=== PATIENT | male | born 1950 | race Caucasian/White ===

== ENCOUNTER 2018-09-26 12:15 | Emergency (ER) | payer OTHER ==
--- NOTE | 2018-09-26 13:46 | ED ---
Skin Complaint - HPI Summary HPI Summary: Pt is a 67 y/o male who presents to the ED c/o ear bleeding. He states 10 days ago he had a lesion on his left ear removed for testing at the [place]. This morning in the shower the scab on his ear fell off and started spurting blood. He tried to stop the bleeding with pressure and an ice cube, but neither helped the bleeding stop. Pt is not on any blood thinners. PMHx HTN. - History of Current Complaint Chief Complaint: EDEarPain Time Seen by Provider: 09/26/18 13:35 Stated Complaint: LT EAR LAC Hx Obtained From: Patient Onset/Duration: Started Hours Ago - This morning, Resolved Timing: Constant Current Severity: None Pain Intensity: 0 Pain Scale Used: 0-10 Numeric Skin Location: Ear - Left Aggravating Symptom(s): Other: - Scab falling off Related History: Other: - Lesion removed for testing PMH/Surg Hx/FS Hx/Imm Hx Endocrine/Hematology History: Denies: Hx Diabetes Cardiovascular History: Reports: Hx Hypertension Infectious Disease History: No Infectious Disease History: Denies: Traveled Outside the [place] in Last 30 Days - Family History Known Family History: Negative: Blood Disorder - Social History Alcohol Use: Occasionally Hx Substance Use: No Substance Use Type: Reports: None Hx Tobacco Use: Yes Smoking Status (MU): Light Every Day Tobacco Smoker Review of Systems Negative: Fever Positive: Other - Bleeding lesion left ear All Other Systems Reviewed And Are Negative: Yes Physical Exam - Summary Physical Exam Summary: Appearance: Well appearing, no pain distress Skin: warm, dry, reflects adequate perfusion Head/face: normal Eyes: EOMI, VIET ENT: mucous membranes moist, 1.5 cm diameter circular shallow surgical wound into dermal layer on helix of left ear, no active bleeding Neck: supple, non-tender Respiratory: CTA, breath sounds present Cardiovascular: RRR, pulses symmetrical Abdomen: non-tender, soft Bowel Sounds: present Musculoskeletal: normal, strength/ROM intact Neuro: normal, sensory motor intact, A&Ox3 Triage Information Reviewed: Yes Vital Signs On Initial Exam: Initial Vitals Temp Pulse Resp BP Pulse Ox 98.3 F 65 16 133/54 98 09/26/18 12:17 09/26/18 12:17 09/26/18 12:17 09/26/18 12:17 09/26/18 12:17 Vital Signs Reviewed: Yes Procedures - Procedure Summary Procedure Summary: Left ear: Bacitracin ointment, pressure dressing Diagnostics - Vital Signs Vital Signs Temp Pulse Resp BP Pulse Ox 09/26/18 12:17 98.3 F 65 16 133/54 98 - Laboratory Lab Statement: Any lab studies that have been ordered have been reviewed, and results considered in the medical decision making process. Course/Dx - Course Course Of Treatment: Patient with bleeding dermatologic surgery wound on his pinna that had stopped by the time I saw him. It was dressed with bacitracin ointment and a pressure dressing was applied. He had no further bleeding throughout a period of observation. - Diagnoses Provider Diagnoses: Post-operative hemorrhage Discharge - Sign-Out/Discharge Documenting (check all that apply): Patient Departure - Discharge - Discharge Plan Condition: Improved Disposition: HOME Patient Education Materials: Postoperative Bleeding (ED) Referrals: Dinorah Peng [Primary Care Provider] - Additional Instructions: Dress with bacitracin ointment 2-[address] pressure on the area if it rebleeds. Return if worse, uncontrolled bleeding, or other concerns. - Billing Disposition and Condition Condition: IMPROVED Disposition: Home - Attestation Statements Document Initiated by Scribe: Yes Documenting Scribe: Elinor Portillo Provider For Whom Scribe is Documenting (Include Credential): Bart Keating MD Scribe Attestation: Elinor Gutierrez scribed for Bart Keating MD on 09/26/18 at 1905. Scribe Documentation Reviewed: Yes Provider Attestation: The documentation as recorded by the Elinor yao accurately reflects the service I personally performed and the decisions made by , Bart Keating MD
[2018-09-26 13:53] VITALS: BP 170/99
== END 2018-09-26 13:52 | disposition home or self-care (01) ==
LOC: ED 12:15
DX: L76.21 Postprocedural hemorrhage of skin and subcutaneous tissue following a dermatologic procedure (principal); F17.200 Nicotine dependence, unspecified, uncomplicated
CPT/HCPCS: 99281

== ENCOUNTER 2018-09-27 07:19 | Emergency (ER) | payer OTHER ==
[2018-09-27] MEDS ORDERED: Tranexamic Acid 1,000 MG/10 ML SDV IV ONE (07:37)
[2018-09-27] MEDS ORDERED: LIDOCAINE 0.5% ONE (07:39)
[2018-09-27] MEDS ORDERED: EPI ONE (07:39)
[2018-09-27] MEDS ORDERED: Lidocaine 2% EPI 1:200000 MPF*10-20 ML VIAL ONE (07:53)
[2018-09-27 09:41] VITALS: BP 163/108
--- NOTE | 2018-09-27 10:44 | ED ---
Skin Complaint - HPI Summary HPI Summary: Patient is a 67-year-old male presenting to the ED for the second time in 2 days with left ear bleeding. He states approximately 12 days ago he had a lesion on the left ear removed at the [place]. Yesterday he was seen in the ED, however the bleeding had ceased upon arrival and medications or treatment was not necessary. Patient denies any blood thinners, however has a history of hypertension. Not on medications currently. He states this morning he coughed and the area opened up again and started "spurting blood." He was unable to control this at home with ice and direct pressure. - History of Current Complaint Chief Complaint: EDEarPain Time Seen by Provider: 09/27/18 07:34 Stated Complaint: RT INNER EAR BLEED Hx Obtained From: Patient Onset/Duration: Started Hours Ago Skin Exposure Onset/Duration: Hours Ago Timing: Constant Onset Severity: Severe Current Severity: Severe Pain Intensity: 0 Pain Scale Used: 0-10 Numeric Skin Location: Ear Aggravating Symptom(s): Nothing Alleviating Symptom(s): Nothing Associated Signs & Symptoms: Negative Related History: Trauma - Allergy/Home Medications Allergies/Adverse Reactions: Allergies Allergy/AdvReac Type Severity Reaction Status Date / Time Sulfa (Sulfonamide Allergy Hives Verified 09/27/18 07:27 Antibiotics) PMH/Surg Hx/FS Hx/Imm Hx Previously Healthy: Yes Endocrine/Hematology History: Denies: Hx Diabetes Cardiovascular History: Reports: Hx Hypertension - Immunization History Hx Pertussis Vaccination: No Immunizations Up to Date: Yes Infectious Disease History: No Infectious Disease History: Denies: Traveled Outside the [place] in Last 30 Days - Family History Known Family History: Negative: Blood Disorder - Social History Occupation: Employed Full-time Lives: With Family Alcohol Use: Occasionally Hx Substance Use: No Substance Use Type: Reports: None Hx Tobacco Use: Yes Smoking Status (MU): Light Every Day Tobacco Smoker Review of Systems Constitutional: Negative Negative: Fever, Chills, Fatigue, Skin Diaphoresis Negative: Palpitations, Chest Pain Negative: Shortness Of Breath, Cough Negative: Abdominal Pain, Vomiting Negative: Arthralgia, Myalgia Positive: Other - small arterial bleed to the crura of the antihelix Neurological: Negative All Other Systems Reviewed And Are Negative: Yes Physical Exam Triage Information Reviewed: Yes Vital Signs On Initial Exam: Initial Vitals Temp Pulse Resp BP Pulse Ox 98.9 F 74 16 177/96 95 09/27/18 07:24 09/27/18 07:24 09/27/18 07:24 09/27/18 07:24 09/27/18 07:24 Vital Signs Reviewed: Yes Appearance: Positive: Well-Appearing, Well-Nourished Skin: Positive: Warm, Skin Color Reflects Adequate Perfusion, Other - small arterial bleed to the crura of the antihelix Head/Face: Positive: Normal Head/Face Inspection Eyes: Positive: EOMI, VIET, Conjunctiva Clear Neck: Positive: No Lymphadenopathy Respiratory/Lung Sounds: Positive: Clear to Auscultation, Breath Sounds Present Cardiovascular: Positive: Pulses are Symmetrical in both Upper and Lower Extremities Musculoskeletal: Positive: Normal, Strength/ROM Intact Neurological: Positive: Sensory/Motor Intact, Alert, Oriented to Person Place, Time, Speech Normal Psychiatric: Positive: Affect/Mood Appropriate Procedures - Laceration/Wound Repair 1 Location: Other - ear Description: Linear Anesthesia: Local Betadine Prep?: No Laceration/Wound Explored: clean Suture Type: Nylon Number of Sutures: 3 Layer Closure?: No Sterile Dressing Applied?: Yes Diagnostics - Vital Signs Vital Signs Temp Pulse Resp BP Pulse Ox 09/27/18 09:40 98.3 F 65 16 163/108 100 09/27/18 07:24 98.9 F 74 16 177/96 95 - Laboratory Lab Statement: Any lab studies that have been ordered have been reviewed, and results considered in the medical decision making process. Course/Dx - Course Course Of Treatment: During the course treatment, several methods to cease bleeding was attempted. There is an arterial bleed over the crura of the antihelix. TXA soaked Surgicel 3 waiting 20 minutes at each time with compression dressings applied. .5ml lidocaine with epi used without good effect. Direct cautery applied and again TXA soaked surgicel x 20 minutes. The area continues to bleed. 3 cross stitches (6 wraps) applied with direct pressure to the center of the arterial bleed. This controlled the bleeding. Again, TXA soaked surgicel applied with direct pressure. Patient is OK for discharge and will have suture removal in 5 days. He understands strict return precautions. - Diagnoses Provider Diagnoses: Postoperative hemorrhage of skin Discharge - Sign-Out/Discharge Documenting (check all that apply): Patient Departure - Discharge Plan Condition: Stable Disposition: HOME Referrals: Dinorah Peng [Primary Care Provider] - Additional Instructions: use the mesh (small gauze) first followed by larger gauze and the compression dressing You have 3 sutures placed - these should be removed in about 5 days - Billing Disposition and Condition Condition: STABLE Disposition: Home Images - Images Ear: 1 - small arterial bleed to the crura of the antihelix
== END 2018-09-27 09:40 | disposition home or self-care (01) ==
LOC: ED 07:19
DX: L76.22 Postprocedural hemorrhage of skin and subcutaneous tissue following other procedure (principal); Y83.8 Other surgical procedures as the cause of abnormal reaction of the patient, or of later complication, without mention of misadventure at the time of the procedure; I10 Essential (primary) hypertension; Z72.0 Tobacco use; Z88.2 Allergy status to sulfonamides
CPT/HCPCS: 12011; 99281; J2001

== ENCOUNTER 2019-05-25 10:30 | Emergency (ER) | payer OTHER ==
[2019-05-25 11:31] LABS: ABS Lymphocytes 2.3 10^3/ul (1.0-4.8); ABS Monocytes 0.6 10^3/ul (0-0.8); ABS Neutrophils 6.7 10^3/ul (1.5-7.7); Eosinophil % 0.2 %; Hematocrit 39 % (42-52); Hemoglobin 13.7 g/dL (14.0-18.0); Lymphocyte % 23.9 %; Mean Corpuscular HGB Conc 35 g/dL (31-36); Mean Corpuscular Hemoglobin 30 pg (27-31); Mean Corpuscular Volume 85 fL (80-94); Mean Platelet Volume 7.7 fL (7.4-10.4); Nucleated Red Blood Cells % 0.1; Platelet Count 259 10^3/uL (150-450); Red Blood Count 4.56 10^6 /uL (4.18-5.48); Red Cell Distribution Width 15 % (10-15); White Blood Count 9.7 10^3/uL (3.5-10.8)
[2019-05-25 11:48] LABS: Albumin 3.3 g/dL (3.2-5.2); Albumin/Globulin Ratio 0.9 (1-3); BUN/Creatinine Ratio 21.2 (8-20); Calcium 9.2 mg/dL (8.6-10.3); EGFR African American 77.6 (>60); EGFR Non-African American 64.2 (>60); Globulin 3.7 g/dL (2-4); Magnesium 1.8 mg/dL (1.9-2.7); Potassium 4.2 mmol/L (3.5-5.0); Total Bilirubin 0.5 mg/dL (0.2-1.0)
[2019-05-25 11:49] LABS: Troponin I 0.01 ng/mL (<0.04)
--- NOTE | 2019-05-25 14:43 | ED ---
Complex/Multi-Sys Presentation - HPI Summary HPI Summary: 68 year old M presenting to [facility] complains of dizziness, fever, myalgia, decreased appetite x 1 week. The patient states that the dizziness is his worst symptom. The patient rates the pain 6/10 in severity. Symptoms aggravated by nothing. Symptoms alleviated by Tylenol, last taken this morning. Patient reports diarrhea. Patient denies nausea, vomiting, bloody or black stools, abdominal pain, chest pain, cough, rash. Patient has only had 1 1/2 cups of coffee today. Patient states that he had a tick bite on his left knee 6 weeks ago. He noticed a small tick, used isopropyl alcohol, and removed it from his knee, after which he did not seek medical attention. Patient is seen at the [place]. Patient states that he hasn't changed his medications in the last 2 weeks. He hasn't traveled out of the country recently. He hasn't recently been around sick people. Patient is a who served in the [employer]. 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 Patients medication reviewed this visit. - History Of Current Complaint Chief Complaint: EDGeneral Time Seen by Provider: 05/25/19 10:54 Hx Obtained From: Patient Onset/Duration: Lasting Weeks - 1, Still Present Timing: Constant Severity Currently: Mild Aggravating Factor(s): nothing Alleviating Factor(s): Tylenol Associated Signs And Symptoms: Positive: Other - diarrhea, tick bite on left knee; NEGATIVE: nausea, vomiting, bloody or black stools, abdominal pain, chest pain, cough, rash - Allergies/Home Medications Allergies/Adverse Reactions: Allergies Allergy/AdvReac Type Severity Reaction Status Date / Time Sulfa (Sulfonamide Allergy Hives Verified 09/27/18 07:27 Antibiotics) Home Medications: Home Medications Cyclobenzaprine TAB* [Flexeril 10 MG TAB*] 10 mg PO DAILY 05/25/19 [History Confirmed 05/25/19] Hydrocodone/Acetamin 10/325(NF [[place] 10/325 (NF)] 1 tab PO Q4HR PRN 05/25/19 [ History Confirmed 05/25/19] Ketoconazole 2 % CREAM (NF) [Nizoral 2% CREAM (NF)] 1 applic TOPICAL BID PRN 02/08 [History Confirmed 05/25/19] Meloxicam(NF) [Mobic(NF)] 7.5 mg PO DAILY PRN 05/25/19 [History Confirmed ] Metoprolol Tartrate TAB* [Lopressor TAB*] 25 mg PO BID 05/25/19 [History Confirmed 05/25/19] Omeprazole CAP (NF) [Prilosec CAP* 20 MG] 20 mg PO DAILY 05/25/19 [History Confirmed 05/25/19] Terazosin CAP* [Hytrin CAP*] 4 mg PO BEDTIME 05/25/19 [History Confirmed ] Terbinafine HCl 250 mg PO DAILY 05/25/19 [History Confirmed 05/25/19] PMH/Surg Hx/FS Hx/Imm Hx Previously Healthy: Yes Endocrine/Hematology History: Denies: Hx Diabetes Cardiovascular History: Reports: Hx Hypertension Respiratory History: Denies: Hx Asthma GI History: Reports: Hx Gastroesophageal Reflux Disease Sensory History: Reports: Hx Contacts or Glasses Opthamlomology History: Reports: Hx Contacts or Glasses - Surgical History Surgery Procedure, Year, and Place: broken bones Infectious Disease History: No Infectious Disease History: Denies: Traveled Outside the [place] in Last 30 Days - Family History Known Family History: Positive: Non-Contributory Negative: Blood Disorder - Social History Occupation: Employed Full-time Alcohol Use: Occasionally Hx Substance Use: No Substance Use Type: Reports: None Hx Tobacco Use: Yes Smoking Status (MU): Light Every Day Tobacco Smoker Type: Cigarettes Amount Used/How Often: 1 pack per week Review of Systems Positive: Fever Negative: Chest Pain Negative: Cough Gastrointestinal: Negative - black and bloody stools Positive: Diarrhea, Other - decreased appetite. Negative: Abdominal Pain, Vomiting, Nausea Positive: Myalgia Negative: Rash Neurological: Other - Dizziness All Other Systems Reviewed And Are Negative: Yes Physical Exam - Summary Physical Exam Summary: Vital Signs Reviewed: Yes A+Ox3, no distress Eyes: Conjunctiva Clear, VIET. 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 Skin: Positive: no rash, no ecchymosis Triage Information Reviewed: Yes Vital Signs On Initial Exam: Initial Vitals Temp Pulse Resp BP Pulse Ox 98.9 F 85 16 104/79 98 05/25/19 10:39 05/25/19 10:39 05/25/19 10:39 05/25/19 10:39 05/25/19 10:39 Vital Signs Reviewed: Yes Diagnostics - Vital Signs Vital Signs Temp Pulse Resp BP Pulse Ox 05/25/19 14:25 64 135/72 97 05/25/19 14:23 61 98 05/25/19 13:13 98.7 F 73 17 99/68 99 05/25/19 10:39 98.9 F 85 16 104/79 98 - Laboratory Lab Results: Lab Results 05/25/19 05/25/19 Range/Units 11:22 11:22 WBC 9.7 (3.5-10.8) 10^3/uL RBC 4.56 (4.18-5.48) 10^6 /uL Hgb 13.7 L (14.0-18.0) g/dL Hct 39 L (42-52) % MCV 85 (80-94) fL MCH 30 (27-31) pg MCHC 35 (31-36) g/dL RDW 15 (10-15) % Plt Count 259 (150-450) 10^3/uL MPV 7.7 (7.4-10.4) fL Neut % (Auto) 69.1 % Lymph % (Auto) 23.9 % [place] % (Auto) 6.6 % Eos % (Auto) 0.2 % Baso % (Auto) 0.2 % Absolute Neuts (auto) 6.7 (1.5-7.7) 10^3/ul Absolute Lymphs (auto) 2.3 (1.0-4.8) 10^3/ul Absolute Monos (auto) 0.6 (0-0.8) 10^3/ul Absolute Eos (auto) 0.0 (0-0.6) 10^3/ul Absolute Basos (auto) 0.0 (0-0.2) 10^3/ul Absolute Nucleated RBC 0.0 10^3/ul Nucleated RBC % 0.1 Sodium 135 (135-145) mmol/L Potassium 4.2 (3.5-5.0) mmol/L Chloride 99 L (101-111) mmol/L Carbon Dioxide 28 (22-32) mmol/L Anion Gap 8 (2-11) mmol/L BUN 24 (6-24) mg/dL Creatinine 1.13 (0.67-1.17) mg/dL Est GFR ( Amer) 77.6 (>60) Est GFR (Non-Af Amer) 64.2 (>60) BUN/Creatinine Ratio 21.2 H (8-20) Glucose 115 H (70-100) mg/dL Calcium 9.2 (8.6-10.3) mg/dL Magnesium 1.8 L (1.9-2.7) mg/dL Total Bilirubin 0.50 (0.2-1.0) mg/dL AST 48 H (13-39) U/L ALT 53 H (7-52) U/L Alkaline Phosphatase 86 (34-104) U/L Total Creatine Kinase 30 (10-223) U/L Troponin I 0.01 (<0.04) ng/mL Total Protein 7.0 (6.4-8.9) g/dL Albumin 3.3 (3.2-5.2) g/dL Globulin 3.7 (2-4) g/dL Albumin/Globulin Ratio 0.9 L (1-3) Result Diagrams: 05/25/19 11:22 05/25/19 11:22 Lab Statement: Any lab studies that have been ordered have been reviewed, and results considered in the medical decision making process. - Radiology CXR Radiology Interpretation Completed By: Radiologist Summary of Radiographic Findings: 1. No evidence for acute intrathoracic disease. ED physician has reviewed this report. - CT Brain CT Interpretation Completed By: Radiologist Summary of CT Findings: Negative unenhanced head CT. ED physician has reviewed this report. Re-Evaluation - Re-Evaluation First Eval Re-Evaluation Time: 16:15 Change: Improved Comment: Patient is eating and feels well. CT neg Reviewed his labs. Waiting for urine. Second Eval Comment: eviewed labs. dizziness resolved. will d/c with rx meclizine and start doxy. lyme titer pending. f/u with pcp. return precaution. pt comfortable and in agreement with plan Complex Multi-Symp Course/Dx Course Of Treatment: Pt presents wit body aches, dizziness, fatigue, nauesea and mild headache for several days. Pt states sx improving by still present. Ptstates had a tick bit several week ago and is concerned is related. on exam, VSS Pt with nystagmus to right no other sx. will check labs, urine,IVF, head CT reassess - Diagnoses Provider Diagnoses: Tick bite, Fever, Vertigo Discharge - Sign-Out/Discharge Documenting (check all that apply): Patient Departure - Discharge Patient Received Moderate/Deep Sedation with Procedure: No - Discharge Plan Condition: Stable Disposition: HOME Prescriptions: DOXYcycline CAP(*) [DOXYcycline 100MG CAP(*)] 100 mg PO BID #20 cap DOXYcycline CAP(*) [DOXYcycline 100MG CAP(*)] 100 mg PO BID #28 cap Meclizine TAB* [Antivert 12.5 TAB*] 25 mg PO TID PRN #15 tab PRN Reason: Dizziness Patient Education Materials: Tick Bite (ED), Fever in Adults (ED), Dizziness ( ED) Referrals: Dinorah Peng [Primary Care Provider] - Additional Instructions: - STay well hydrated. Drink plenty of non-alcoholic, non- caffinated beverages - eat and drink regular, healthy meals - take the medicatoin as prescribed for dizziness - Take antibiotics until your lyme disease tests come back - this may take 1 week. SChedule a follow-up appointment with your primary. Contact your doctor or return with questions or concerns - Billing Disposition and Condition Condition: STABLE Disposition: Home - Attestation Statements Document Initiated by Lucillee: Yes Documenting Scribe: Parisa Alexander Provider For Whom Rosa M is Documenting (Include Credential): Saumya Patricio MD Scribe Attestation: Parisa Gutierrez, scribed for Saumya Patricio MD on 05/29/19 at 1246. Scribe Documentation Reviewed: Yes Provider Attestation: The documentation as recorded by the Parisa yao accurately reflects the service I personally performed and the decisions made by me, Saumya Patricio MD Status of Scribe Document: Viewed
[2019-05-25] MEDS ORDERED: NS 0.9% 1000 ML** 1,000 ML IV ONE (14:55)
[2019-05-25] MEDS ORDERED: Meclizine TAB* 12.5 MG PO ONE (15:49)
[2019-05-25 16:25] LABS: TSH (Thyroid Stimulating Horm) 1.04 mcIU/mL (0.34-5.60)
[2019-05-25 16:37] LABS: Urine Appearance Clear; Urine Bilirubin Negative (Negative); Urine Blood Negative (Negative); Urine Color Yellow; Urine Glucose Negative (Negative); Urine Ketones Negative (Negative); Urine Nitrite Negative (Negative); Urine Protein Negative (Negative); Urine Specific Gravity 1.013 (1.010-1.030); Urine Urobilinogen Negative (Negative)
[2019-05-25 17:30] VITALS: BP 119/67
--- NOTE | 2019-05-27 14:28 | PN ---
Progress Note - Progress Note Date of Service: 05/25/19 Note: Lyme antibody positive. Pending reflex western blot. Pt. with hx of tick bite. Will extend doxycycline to 3 weeks. Called and discussed with pt. today at 1425. He will f.u with his PCP.
== END 2019-05-25 17:26 | disposition home or self-care (01) ==
LOC: ED 10:30
DX: S80.262A Insect bite (nonvenomous), left knee, initial encounter (principal); W57.XXXA Bitten or stung by nonvenomous insect and other nonvenomous arthropods, initial encounter; R50.9 Fever, unspecified; R42 Dizziness and giddiness; I10 Essential (primary) hypertension; K21.9 Gastro-esophageal reflux disease without esophagitis; F17.210 Nicotine dependence, cigarettes, uncomplicated; Z88.2 Allergy status to sulfonamides; Z79.899 Other long term (current) drug therapy
CPT/HCPCS: 36415; 70450; 71046; 80053; 81003; 82550; 83735; 84443; 84484; 85025; 86617; 86618; 96360; 99283; A9270-GY